=== PATIENT | male | born 1995 ===

== ENCOUNTER 2017-02-17 15:35 | Emergency (ER) | payer MEDICAID ==
[2017-02-17 15:48] VITALS: BP 109/75; PULSE 62; RESP 16; TEMP 98; O2SAT 98
--- NOTE | 2017-02-17 16:15 | RAD ---
PROCEDURE: Right Ankle Radiographs. HISTORY: right ankle pain, twisted COMPARISON: None available. FINDINGS: BONES: No acute displaced fracture. JOINTS: No dislocation. SOFT TISSUES: Soft tissue swelling greatest laterally. No evidence of radiopaque foreign body. OTHER FINDINGS: None. IMPRESSION: Soft tissue swelling greatest laterally. No acute displaced fracture, dislocation, or significant joint effusion identified.If symptoms persist or if there is clinical concern, x-ray follow-up in 7-10 days should be considered.
--- NOTE | 2017-02-17 16:57 | ED PDOC ---
Lower Extremity Pain/Injury Time Seen by Provider: 02/17/17 15:52 Chief Complaint (Nursing): Lower Extremity Problem/Injury History Per: Patient History/Exam Limitations: no limitations Additional Complaint(s): 21-year-old male, presents to the emergency department with complaints of ankle pain. Patient states he sustained an inversion ankle injury while on skateboard just prior to arrival. Pain is persistent in nature and worse w/ weight bearing. Patient denies numbness/weakness, nausea/vomiting, head/neck trauma, ripping/tearing sensation, or any other associated symptoms. No other complaints at this time. Past Medical History Reviewed: Historical Data, Nursing Documentation, Vital Signs Vital Signs: Last Vital Signs Temp 98 F 02/17/17 15:45 Pulse 62 02/17/17 15:45 Resp 16 02/17/17 15:45 BP 109/75 02/17/17 15:45 Pulse Ox 98 02/17/17 15:45 - Medical History PMH: Asthma - Family History Family History: States: Unknown Family Hx - Home Medications Home Medications: Ambulatory Orders Medication Instructions Recorded No Known Home Med 02/17/17 - Allergies Allergies/Adverse Reactions: Allergies Allergy/AdvReac Type Severity Reaction Status Date / Time No Known Allergies Allergy Verified 02/17/17 16:44 Review of Systems ROS Statement: Except As Marked, All Systems Reviewed And Found Negative Gastrointestinal: Negative for: Nausea, Vomiting Musculoskeletal: Positive for: Foot Pain. Negative for: Neck Pain, Back Pain Neurological: Negative for: Weakness, Numbness Physical Exam - Reviewed Nursing Documentation Reviewed: Yes Vital Signs Reviewed: Yes - Physical Exam Appears: Positive for: Non-toxic, No Acute Distress Head Exam: Positive for: ATRAUMATIC, NORMOCEPHALIC Skin: Positive for: Warm, Dry. Negative for: Rash Neck: Positive for: Painless ROM Respiratory: Negative for: Accessory Muscle Use, Respiratory Distress Extremity: Positive for: Tenderness, Swelling, Other (RIGHT FOOT: SWELLING AND ECHYMOSIS TO LATERAL MALLEOLUS. LIMITED RANGE OF MOTION SECONDARY TO PAIN. MILD SWELLING AND TENDERNESS TO PALPATION.). Negative for: Calf Tenderness, Deformity Neurologic/Psych: Positive for: Alert, Oriented - ECG O2 Sat by Pulse Oximetry: 98 Medical Decision Making Medical Decision Making: Plan: * R Ankle X-Ray * Reassess and Disposition X-ray normal Posterior splint placed due to swelling, ecchymosis and pain. Discussed importance of f/u with podiatry. Scribe Attestation: Documented by Tigre Isbell, acting as a scribe for RAFFI Madison. Provider Attestation: All medical record entries made by the Scribe were at my direction and personally dictated by me. I have reviewed the chart and agree that the record accurately reflects my personal performance of the history, physical exam, medical decision making, and the department course for this patient. I have also personally directed, reviewed, and agree with the discharge instructions and disposition. Disposition - Clinical Impression Clinical Impression: Ankle injury - Patient ED Disposition Is Patient to be Admitted: No Counseled Patient/Family Regarding: Diagnosis, Need For Followup - Disposition Referrals: Ronaldo Sahu DPM [Staff Provider] - [facility]iatry [facility] [Outside] Disposition: Routine/Home Disposition Time: 17:42 Condition: GOOD Additional Instructions: Ice, elevation, motrin. Please follow-up with podiatry. Instructions: Ankle Sprain (ED) Forms: [facility] ED School/Work Excuse
== END 2017-02-17 17:48 | disposition home or self-care (01) ==
LOC: H.ER 15:35
DX: J45.909 Unspecified asthma, uncomplicated (principal)

== ENCOUNTER 2017-04-11 12:39 | Emergency (ER) | payer MEDICAID, OTHER ==
[2017-04-11 12:50] VITALS: BP 138/72; PULSE 58; RESP 18; TEMP 97.7; O2SAT 100
--- NOTE | 2017-04-11 13:09 | ED PDOC ---
Lower Extremity Pain/Injury Time Seen by Provider: 04/11/17 12:50 Chief Complaint (Nursing): Lower Extremity Problem/Injury Chief Complaint (Provider): Right Knee Pain History Per: Patient History/Exam Limitations: no limitations Onset/Duration Of Symptoms: Days (x2) Current Symptoms Are (Timing): Still Present Additional Complaint(s): 12:50 Armando Myers is a 21 year old male with a history of right leg surgery due to a breakage of his right femur that presents to the ED with a chief complaint of right knee pain that began around two days ago. 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 He denies any possibility of recent injury. While sitting, patient does not report any pain when bending his leg from a 90 degree position up to a 180 degree position, but does report some pain when bending his leg back down. Of Note: Patient does not use knee brace while at work. Past Medical History Reviewed: Historical Data, Nursing Documentation, Vital Signs Vital Signs: Last Vital Signs Temp 97.7 F 04/11/17 12:47 Pulse 58 L 04/11/17 12:47 Resp 18 04/11/17 12:47 BP 138/72 04/11/17 12:47 Pulse Ox 100 04/11/17 12:47 - Medical History PMH: Asthma - Family History Family History: States: Unknown Family Hx - Home Medications Home Medications: Ambulatory Orders Medication Instructions Recorded Ibuprofen [Motrin] 600 mg PO Q6 #20 tab 04/11/17 - Allergies Allergies/Adverse Reactions: Allergies Allergy/AdvReac Type Severity Reaction Status Date / Time No Known Allergies Allergy Verified 02/17/17 16:44 Review of Systems Musculoskeletal: Positive for: Leg Pain (right knee pain) Physical Exam - Reviewed Nursing Documentation Reviewed: Yes Vital Signs Reviewed: Yes - Physical Exam Appears: Positive for: Non-toxic, No Acute Distress Head Exam: Positive for: ATRAUMATIC, NORMOCEPHALIC Skin: Positive for: Normal Color, Warm Extremity: Positive for: Tenderness (Tenderness over right patella tendon), Other (Negative anterior drawer test right knee. No effusion right knee. No ecchymosis right knee. No instability right knee. No pain in back of right knee. ). Negative for: Normal ROM (ROM slightly limited due to pain in right knee) Neurologic/Psych: Positive for: Alert, Oriented - ECG O2 Sat by Pulse Oximetry: 100 (RA) Pulse Ox Interpretation: Normal Medical Decision Making Medical Decision Makin:57 Impression: Possible Tendonitis Initial Plan: * X-Ray Right Knee * Ibuprofen 600 mg PO XR: NAD, as read by JAKE Advised patient to follow up with his surgeon. RICE therapy Scribe Attestation: Documented by Libertad Jorgensen, acting as a scribe for Kaylan Mtz PA-C. Provider Scribe Attestation: All medical record entries made by the Scribe were at my direction and personally dictated by me. I have reviewed the chart and agree that the record accurately reflects my personal performance of the history, physical exam, medical decision making, and the department course for this patient. I have also personally directed, reviewed, and agree with the discharge instructions and disposition. Disposition - Clinical Impression Clinical Impression: Patellar tendonitis - Disposition Referrals: Mackenzie Isbell MD [Staff Provider] - Disposition Time: 14:38 Condition: STABLE Prescriptions: Ibuprofen [Motrin] 600 mg PO Q6 #20 tab Instructions: Patellar Tendinitis (ED) Forms: [employer] (Uzbek)
--- NOTE | 2017-04-11 15:53 | RAD ---
PROCEDURE: Right Knee Radiographs. HISTORY: pain COMPARISON: None. FINDINGS: BONES: Normal. No fracture. Intramedullary wayne in the femur. JOINTS: Normal. No osteoarthritis. JOINT EFFUSION: None. OTHER FINDINGS: None. IMPRESSION: No fracture.
== END 2017-04-11 14:41 | disposition home or self-care (01) ==
LOC: H.ER 12:39
DX: M76.51 Patellar tendinitis, right knee (principal)

== ENCOUNTER 2017-12-29 10:25 | Emergency (ER) | payer OTHER ==
[2017-12-29 10:38] VITALS: BP 153/95; PULSE 69; RESP 20; TEMP 97.6; O2SAT 97
--- NOTE | 2017-12-29 12:20 | ED PDOC ---
HPI: General Adult Time Seen by Provider: 12/29/17 10:50 Chief Complaint (Nursing): Upper Extremity Problem/Injury History Per: Patient Additional Complaint(s): Pt. states yesterday he developed atraumatic R shoulder pain. States he's had 2 previous R shoulder dislocations. States he has never seen an orthopedist for it. Denies numbness, tingling, new trauma. Past Medical History Reviewed: Historical Data, Nursing Documentation, Vital Signs Vital Signs: Last Vital Signs Temp 97.6 F 12/29/17 10:37 Pulse 69 12/29/17 10:37 Resp 20 12/29/17 10:37 BP 153/95 H 12/29/17 10:37 Pulse Ox 97 12/29/17 10:37 - Medical History PMH: Asthma - Family History Family History: States: No Known Family Hx - Home Medications Home Medications: Ambulatory Orders Medication Instructions Recorded Ibuprofen [Motrin] 600 mg PO Q6 #20 tab 04/11/17 - Allergies Allergies/Adverse Reactions: Allergies Allergy/AdvReac Type Severity Reaction Status Date / Time No Known Allergies Allergy Verified 02/17/17 16:44 Review of Systems ROS Statement: Except As Marked, All Systems Reviewed And Found Negative Musculoskeletal: Positive for: Shoulder Pain Physical Exam - Physical Exam Appears: Positive for: Well, Non-toxic, No Acute Distress Skin: Positive for: Normal Color, Warm. Negative for: Rash Pulses-Radial (L): 2+ Pulses-Radial (R): 2+ Extremity: Positive for: Normal ROM (R shoulder without tenderness or swelling or deformity; FROM actively of R shoulder) - ECG O2 Sat by Pulse Oximetry: 97 - Radiology X-Ray: Interpreted by Me (R shoulder x-ray) X-Ray Interpretation: No Acute Disease Disposition - Clinical Impression Clinical Impression: Shoulder pain - Patient ED Disposition Is Patient to be Admitted: No - Disposition Disposition: Routine/Home Disposition Time: 12:21 Condition: STABLE Instructions: Shoulder Pain (ED) Print Language: JAMAICAN
--- NOTE | 2017-12-29 12:49 | RAD ---
PROCEDURE: Radiographs of the Right Shoulder HISTORY: pain No antecedent history of trauma. COMPARISON: No prior. FINDINGS: BONES: Normal. No fracture. JOINTS: Normal. Glenohumeral and acromioclavicular joints preserved. No osteoarthritis. SOFT TISSUES: Normal. OTHER FINDINGS: None. IMPRESSION: Normal radiographs of the right shoulder.
== END 2017-12-29 12:51 | disposition home or self-care (01) ==
LOC: H.ER 10:25
DX: M25.511 Pain in right shoulder (principal)

== ENCOUNTER 2019-02-16 15:33 | Emergency (ER) | payer SELFPAY ==
[2019-02-16 16:41] VITALS: BP 158/79; PULSE 70; RESP 18; TEMP 98.3; O2SAT 100
--- NOTE | 2019-02-16 19:19 | ED PDOC ---
HPI: Back Chief Complaint (Nursing): Back Pain Past Medical History Vital Signs: Last Vital Signs Temp 98.3 F 02/16/19 16:37 Pulse 70 02/16/19 16:37 Resp 18 02/16/19 16:37 BP 158/79 H 02/16/19 16:37 Pulse Ox 100 02/16/19 16:37 - Medical History PMH: Asthma - Family History Family History: States: Unknown Family Hx - Home Medications Home Medications: Ambulatory Orders Medication Instructions Recorded Ibuprofen [Motrin] 600 mg PO Q6 #20 tab 04/11/17 - Allergies Allergies/Adverse Reactions: Allergies Allergy/AdvReac Type Severity Reaction Status Date / Time No Known Allergies Allergy Verified 02/17/17 16:44 - ECG O2 Sat by Pulse Oximetry: 100 Medical Decision Making Medical Decision Makin:17 re eval pt reports getting the meds 10-15mins ago and has not felt a change yet xray reviewed by me: no fractures, dislocations, DJD or disc space narrowing will re eval pt again after meds start to work Disposition - Disposition
--- NOTE | 2019-02-16 19:19 | ED PDOC ---
HPI: Back Time Seen by Provider: 02/16/19 18:00 Chief Complaint (Nursing): Back Pain Chief Complaint (Provider): Back Pain History Per: Patient History/Exam Limitations: no limitations Onset/Duration Of Symptoms: Days (2x) Current Symptoms Are (Timing): Still Present Severity: Moderate Additional Complaint(s): 23 year old male with no pertinent past medical history presents to the ED for an evaluation of back pain worsening since yesterday. Patient reports having lower back pain that comes and goes for the past 1x month, which has now been more constant. Patient states that the pain is non-radiating and worsens when he turns to the left. 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 Patient states that his mother gave him 2x tylenol tabs yesterday with no relief. Patient denies taking any medications for pain today. Otherwise: (-) fevers, (-) chills, (-) numbness, (-) tingling, (-) saddle anesthesia, (-) urine incontinence, (-) bowel incontinence, (-) history of IV drug use, (-) history of malignancies, (-) injuries or trauma to his back. PMD: None Past Medical History Reviewed: Historical Data, Nursing Documentation, Vital Signs Vital Signs: Last Vital Signs Temp 98.3 F 02/16/19 16:37 Pulse 70 02/16/19 16:37 Resp 18 02/16/19 16:37 BP 158/79 H 02/16/19 16:37 Pulse Ox 100 02/16/19 16:37 ERWIN Report Viewed: Yes - Medical History PMH: Asthma - Family History Family History: States: No Known Family Hx - Social History Current smoker - smoking cessation education provided: No Alcohol: None Drugs: Denies - Home Medications Home Medications: Ambulatory Orders Medication Instructions Recorded Ibuprofen [Motrin] 600 mg PO Q6 #20 tab 04/11/17 Cyclobenzaprine [Cyclobenzaprine 10 mg PO TID PRN #12 tab 02/16/19 HCl] Ibuprofen [Motrin Tab] 600 mg PO Q6 PRN #20 tab 02/16/19 - Allergies Allergies/Adverse Reactions: Allergies Allergy/AdvReac Type Severity Reaction Status Date / Time No Known Allergies Allergy Verified 02/17/17 16:44 Review of Systems ROS Statement: Except As Marked, All Systems Reviewed And Found Negative Constitutional: Negative for: Fever, Chills Gastrointestinal: Negative for: Other (bowel incontinence) Genitourinary Male: Negative for: Incontinence Musculoskeletal: Positive for: Back Pain (lower back pain) Neurological: Negative for: Numbness ((-) tingling), Other (saddle anesthesia) Physical Exam - Reviewed Nursing Documentation Reviewed: Yes Vital Signs Reviewed: Yes - Physical Exam Comments: GENERAL APPEARANCE: Patient is awake, alert, oriented x 3, in no acute distress. SKIN: Warm, dry; (-) cyanosis. EYES: (-) conjunctival pallor. ENMT: Mucous membranes moist. NECK: (-) tenderness, (-) stiffness, (-) lymphadenopathy. CHEST AND RESPIRATORY: (-) rales, (-) rhonchi, (-) wheezes; breath sounds equal bilaterally. HEART AND CARDIOVASCULAR: (-) irregularity; (-) murmur, (-) gallop. ABDOMEN AND GI: Soft; (-) tenderness; (-) palpable mass. BACK: (+) mild midline tenderness to L1 and L2, (+) bilateral paraspinal muscular tenderness. (-) direct bony tenderness, (-) deformity. Straight leg raising (-) bilaterally. Full ROM, certain movement makes the pain worsen as per patient. EXTREMITIES: (-) deformity. Distal pulses good bilaterally. Full ROM. NEURO AND PSYCH: Mental status as above. CRN 2-12 intact, motorsensory in tact, strength 5/5 in all 4 extremities. Intact sensation bilaterally; normal strength in extension of the knees, plantar and dorsiflexion of the toes. DTRs symmetric. - ECG O2 Sat by Pulse Oximetry: 100 (RA) Pulse Ox Interpretation: Normal Medical Decision Making Medical Decision Makin:00 Initial impression: 23 year old male with back pain Initial plan: * XRay L spine * flexeril 10 mg PO * motrin 600 mg PO * reevaluation 19:17 re eval pt reports getting the meds not too long ago, feels sleepy and starting to feel some relief and that he is ready to go home xray reviewed by me: no fractures, dislocations, DJD or disc space narrowing pt is neurologically intact, ambulating with steady gait, xray with no acute changes, pt is stable for dc discussed results, diagnosis, treatment, return precautions and f/u with pt who is understanding, in agreement and stable for dc Scribe Attestation: Documented by Evelin Baron, acting as a scribe for Rico Briceno PA-C. Provider Scribe Attestation: All medical record entries made by the Scribe were at my direction and personally dictated by me. I have reviewed the chart and agree that the record accurately reflects my personal performance of the history, physical exam, medical decision making, and the department course for this patient. I have also personally directed, reviewed, and agree with the discharge instructions and disposition. Disposition - Clinical Impression Clinical Impression: Back strain, Low back pain, Muscle spasm of back - Patient ED Disposition Is Patient to be Admitted: No Counseled Patient/Family Regarding: Studies Performed, Diagnosis, Need For Followup, Rx Given - Disposition Referrals: [facility] [Outside] Mackenzie Isbell MD [Staff Provider] - Disposition: Routine/Home Disposition Time: 19:21 Condition: STABLE Additional Instructions: Return to ED for new or worsening symptoms, fever >100.4, numbness or tingling, unable to walk, urinary or bowel incontinence. Follow up with an orthopedist in 5-7 days. Take medications as prescribed. Do not drive, drink alcohol or operate heavy machinery when taking flexeril. Rest, avoid heavy lifting or strenuous activity for one week. use heating pads and hot showers to help soothe muscles. Prescriptions: Cyclobenzaprine [Cyclobenzaprine HCl] 10 mg PO TID PRN #12 tab PRN Reason: Muscle Spasm Ibuprofen [Motrin Tab] 600 mg PO Q6 PRN #20 tab PRN Reason: Pain, Moderate (4-7) Instructions: Low Back Pain in Adults, Muscle Strain (DC), Muscle Spasms (DC), Exercise Band Exercises for the Back and Hips Forms: [employer] ([place]), [facility] ED School/Work Excuse Print Language: CZECH - POA Present On Arrival: None
--- NOTE | 2019-02-17 12:43 | RAD ---
Date of service: 02/16/2019 PROCEDURE: Radiographs of the Lumbar Spine. HISTORY: back pain [id number], worse yesterday COMPARISON: No prior. FINDINGS: BONES: Normal alignment. No listhesis. No fracture. DISC SPACES: Unremarkable. OTHER FINDINGS: None. IMPRESSION: Unremarkable radiographs of the lumbar spine.
== END 2019-02-16 19:45 | disposition home or self-care (01) ==
LOC: H.ER 15:33
DX: S39.012A Strain of muscle, fascia and tendon of lower back, initial encounter (principal); X50.9XXA Other and unspecified overexertion or strenuous movements or postures, initial encounter; Y99.0 Civilian activity done for income or pay